=== PATIENT | male | born 1965 | race Caucasian/White ===

== ENCOUNTER → 2019-06-06 | Outpatient (CLI) | payer OTHER ==
--- NOTE | 2019-06-06 17:44 | CONS ---
CONSULTATION REASON FOR CONSULTATION: Sleep apnea. This is a 53-year-old male patient referred to me due to symptoms of loud snoring, witnessed apneas, and some increased fatigue and sleepiness. 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 He travels a lot. However, he does not fall asleep while driving. He is coming in for a sleep apnea evaluation. He goes to bed between 8 and 9 p.m. and wakes up at 3:45 a.m. in the morning. On weekends, he wakes up between 7 and 8 a.m. His current [place] score is 8. No recent weight gain or weight loss. No reported substance abuse. No head trauma. No meningitis. No difficulties with memory or concentration. No anxiety or depression. Occasional heartburn has been reported, for which he is on treatment. PAST MEDICAL HISTORY: Hypertension, hyperlipidemia, obesity. PAST SURGICAL HISTORY: Past surgical history includes left thumb surgery, left ankle surgery, right knee surgery. DRUG ALLERGIES: NOT KNOWN. He is allergic to cats. OUTPATIENT MEDICATION LIST: Outpatient medication list includes Protonix 40 mg p.o. daily, Protonix and Lipitor. He takes eawi-sto-puatmso allergy medication. SOCIAL HISTORY: Ex-smoker. Quit smoking in 1998. He drinks around 6 to 8 alcoholic beverages on a weekly basis. No history of substance abuse. REVIEW OF SYSTEMS: Fourteen-point review of systems was done. Positive findings were all mentioned above in the history of present illness. No restlessness in the lower extremities. No choking or gasping sensation. No nocturia. No grinding of the teeth. No palpitation or panic attacks or depression or anxiety. PHYSICAL EXAMINATION: VITAL SIGNS: BP is 150/90, pulse 74, respirations 16, temperature 98.4, saturation 99% on room air. BMI 34.2. Junedale score is 8. Neck size is 17 inches. Weight is 219. Height is 5 feet 7 inches. GENERAL APPEARANCE: Calm, comfortable. HEAD: Atraumatic, normocephalic. NECK: Supple. No JVD. No goiter or neck masses. Mallampati class IV. LUNGS: Clear to auscultation. HEART: Heart sounds are regular rate and rhythm. Normal S1, S2. No S3, S4. No murmurs. ABDOMEN: Soft, nontender. No organomegaly. EXTREMITIES: No edema. No cyanosis or clubbing. NEUROLOGIC: Awake and alert. No focal neurological deficit. PSYCHIATRIC: Negative for anxiety or depression. IMPRESSION: 1. Obstructive sleep apnea clinically suspected; under investigation. 2. Limited sleepiness with an Junedale score of 8. 3. Obesity. BMI of 34. 4. Hypertension. 5. Hyperlipidemia. PLAN: 1. Encourage weight loss. 2. Sleep hygiene measures will be implemented. 3. The patient will be undergoing a polysomnogram, and further decisions will be made as to whether treatment is needed, depending on the results of the sleep study. MMODL / IJN: [id number] /
== END | disposition home or self-care (01) ==
LOC: SLEEP 13:23
PROVIDERS: ATTEND Internal Medicine Critical Care Medicine
DX: R06.83 Snoring (principal); E66.9 Obesity, unspecified; Z68.34 Body mass index [BMI] 34.0-34.9, adult; I10 Essential (primary) hypertension; E78.5 Hyperlipidemia, unspecified; Z87.891 Personal history of nicotine dependence; Z79.899 Other long term (current) drug therapy; J30.81 Allergic rhinitis due to animal (cat) (dog) hair and dander
CPT/HCPCS: 99201

== ENCOUNTER → 2021-11-04 | Outpatient (CLI) | payer OTHER ==
--- NOTE | 2021-11-04 15:19 | P.PN ---
Subjective Progress Note Date: 11/04/21 This is a 56-year-old who is coming in for evaluation treatment of obstructive sleep apnea. The patient was seen approximately 3 years ago here in the sleep center at a time the patient was symptomatic and has chronic tiredness and fatigue and sleepiness and an [facility] was having witnessed apneas highly suggestive obstructive sleep apnea. I performed a home sleep study on this patient that was completed on 10/04/2019 and the patient was diagnosed having severe CHAYO with an AHI of 31. He disease was slightly worse in the supine body position. He also demonstrated mild nocturnal oxygen desaturation and he was having chronic hypersomnia. He had other comorbid conditions including hyp ertension and hyperlipidemia. Based on all this, I ordered a CPAP machine for this patient. The machine was not covered by his insurance, [email or web address]. As such, the patient was left without any treatment and he has become quite symptomatic and for that is coming in for further advice. His weight is up a few pounds and is currently weighing around 222 pounds. His [place] score is at about 14. He has no new onset comorbidities. No congestion heart failure. No cardiac arrhythmias. No morning headaches. No nighttime choking or gasping for air. He is tiredness and sleepiness is affecting his overall functionality. Objective - Exam BP is 145/89, pulse is at 70, respirations at 16, temperature is 97.3, height is 5 feet and 7 inches, body mass index is 34.5, oxygen saturations 97% The patient appeared well nourished and normally developed. Vital signs as documented. Head exam is unremarkable. No scleral icterus or corneal arcus noted. Neck is without jugular venous distension, thyromegaly, or carotid bruits. Carotid upstrokes are brisk bilaterally. Lungs are clear to auscultation and percussion. Cardiac exam reveals the PMI to be normally sized and situated. Rhythm is regular. First and second heart sounds normal. No murmurs, rubs or gallops. Abdominal exam reveals normal bowel sounds, no masses, no organomegaly and no aortic enlargement. Extremities are nonedematous and both femoral and pedal pulses are normal.Examination of the skin revealed no evidence of significant rashes, suspicious appearing nevi or other concerning l esions.Neurologically, the patient is awake and alert and the patient does not have any focal neurological deficit. Cranial nerves are essentially intact. Assessment and Plan Plan: Symptomatically obstructive sleep apnea. The patient has severe degenerative baseline with an AHI of 31 slightly worse in supine with a position confirmed on a sleep study that was done on 10/09/2019. The patient is in need for treatment. He is hoping that his [facility] insurance will cover the cost of the machine. Chronic hypersomnia, related to symptomatic obstructive sleep apnea and [place] score is at 14 Hypertension Hyperlipidemia Obesity with a BMI of 34.5 Plan Encourage weight loss. Maintaining her sleep hygiene measures Maintain regular sleep schedule Proceed with obtaining a clearance from the insurance to cover this patient's CPAP machine. I do not see the need for at least study. The patient is going to check his coverage with the [facility] and let me know if this is covered and accordingly we'll proceed with ordering the appropriate APAP machine for this patient. We'll continue to follow.
== END ==
LOC: SLEEP 13:44
PROVIDERS: ATTEND Internal Medicine Critical Care Medicine
DX: G47.33 Obstructive sleep apnea (adult) (pediatric) (principal); I10 Essential (primary) hypertension; E78.5 Hyperlipidemia, unspecified; E66.9 Obesity, unspecified; Z68.34 Body mass index [BMI] 34.0-34.9, adult

== ENCOUNTER → 2022-09-22 | Outpatient (CLI) | payer OTHER ==
--- NOTE | 2022-09-22 16:00 | P.PN ---
Progress Note - Text Progress Note Date: 09/22/22 57-year-old male patient, diagnosed having severe symptomatic obstructive sleep apnea with an AHI of 43. The patient is coming in for a compliancy check as the patient was started on treatment and the patient's current on a CPAP pressure of 11 cm of water. The patient is also using airfit p10 nasal pillows. The patient is very much excited about his ongoing treatment. The patient is feeling much improved and he doesn't have any significant hypersomnia and sleepiness. While at work, the patient reports marked improvement when he is able to concentrate well and he doesn't fall asleep during day-to-day activities. He also reports marked improvement in his sleep quality and he is committed to long-term CPAP therapy at the treatment is working for him. Note that the patient had severe disease. Based on his compliance data from the machine, the patient has been averaging around 7.9 hours of CPAP use per night with a leak of 4 L/m and the patient's AHI is down to 2. His weight is stable for now. He has no specific complaints. His committed. BP is 136/82, pulse is 56, respirations 18, temperature is 98.0, weight is 222 and oxygen saturation 97% on room air Patient's [place] score is down to 8 The patient appeared well nourished and normally developed. Vital signs as doc umented. Head exam is unremarkable. No scleral icterus or corneal arcus noted. Neck is without jugular venous distension, thyromegaly, or carotid bruits. Carotid upstrokes are brisk bilaterally. Lungs are clear to auscultation and percussion. Cardiac exam reveals the PMI to be normally sized and situated. Rhythm is regular. First and second heart sounds normal. No murmurs, rubs or gallops. Abdominal exam reveals normal bowel sounds, no masses, no organomegaly and no aortic enlargement. Extremities are nonedematous and both femoral and pedal pulses are normal.Examination of the skin revealed no evidence of significant rashes, suspicious appearing nevi or other concerning lesions.Neurologically, the patient is awake and alert and the patient does not have any focal neurological deficit. Cranial nerves are essentially intact. Assessment Severe symptomatic CHAYO with an AHI of 43, undergoing successful CPAP therapy at a pressure of 11 cm of water. Treatment is successful for now. Chronic hypersomnia, improved with CPAP therapy and the patient reports marked improvement in sleep quality and daytime alertness Hypertension Hyperlipidemia Obesity Plan Treatment is successful. Continue using the same CPAP pressures. Keep same mask interface. Encourage weight loss. The patient is committed to long-term CPAP therapy. He will see him back in a year's time in follow-up. He meet insurance standards for compliancy.
== END ==
LOC: 3 N SLEEP 15:16
PROVIDERS: ATTEND Internal Medicine Critical Care Medicine
DX: G47.33 Obstructive sleep apnea (adult) (pediatric) (principal); Z99.89 Dependence on other enabling machines and devices; I10 Essential (primary) hypertension; E66.9 Obesity, unspecified; E78.5 Hyperlipidemia, unspecified
CPT/HCPCS: 99212

== ENCOUNTER 2023-07-03 17:17 | Emergency (ER) | payer OTHER ==
[2023-07-03 17:49] VITALS: TEMP 98.7
--- NOTE | 2023-07-03 17:55 | ED ---
Abdominal Pain HPI - General Source: patient Mode of arrival: ambulatory Limitations: no limitations <Vincent Coto - Last Filed: 07/03/23 17:56> - General Source: patient, RN notes reviewed, old records reviewed <Dillan Gallagher - Last Filed: 07/03/23 21:06> - General Chief Complaint: Abdominal Pain Stated Complaint: LLQ pain/cramps back pain Time Seen by Provider: 07/03/23 17:50 - History of Present Illness Initial Comments: 57-year-old male presenting to the ED with a chief complaint of abdominal pain. Patient states since Wednesday has had intermittent pain which is cramping in nature in his left lower abdomen. Patient states he has some associated nonbloody diarrhea with this as well. Also some pain on the left lower back. No urinary symptoms. No fever or chills. No chest pain or shortness of breath. (Vincent Coto) Patient originally evaluated as a quick note. I evaluated patient after his placed in room. Presents with left lower quadrant abdominal pain with diarrhea for 5 days. No significant past medical history. Presents for further evaluation. (Dillan Gallagher) - Related Data Previous Rx's Medication Instructions Recorded Amoxic-Pot Clav 875-125Mg 1 tab PO BID 10 Days #20 tab 07/03/23 [Augmentin 875-125] Dicyclomine [Bentyl] 10 mg PO TID PRN 7 Days #21 capsule 07/03/23 Allergies Allergy/AdvReac Type Severity Reaction Status Date / Time No Known Allergies Allergy Verified 07/03/23 17:32 Review of Systems ROS Other: All systems not noted in ROS Statement are negative. <Vincent Coto - Last Filed: 07/03/23 17:56> ROS Other: All systems not noted in ROS Statement are negative. <Dillan Gallagher - Last Filed: 07/03/23 21:06> ROS Statement: Those systems with pertinent positive or pertinent negative responses have been documented in the HPI. Review of Systems: CONST: Denies fever EYES: Denies blurry vision ENT: Denies nasal congestion C/V: Denies Chest pain RESP: Denies shortness of breath GI: Endorses abdominal pain : Denies dysuria SKIN: Denies rash. MSK: Denies joint pain. NEURO: Denies headache (Dillan Gallagher) Past Medical History Past Medical History: No Reported History History of Any Multi-Drug Resistant Organisms: None Reported Past Surgical History: Orthopedic Surgery Smoking Status: Former smoker Past Alcohol Use History: None Reported Past Drug Use History: None Reported <Vincent Coto - Last Filed: 07/03/23 17:56> General Exam Limitations: no limitations <Vincent Coto - Last Filed: 07/03/23 17:56> <Dillan Gallagher - Last Filed: 07/03/23 21:06> - General Exam Comments Initial Comments: Visual Physical Exam Vital signs reviewed General: Well-appearing, nontoxic, no acute distress. Head: Normocephalic, atraumatic Eyes: PERRLA, EOMI ENT: Airway patent Chest: Nonlabored breathing Skin: No visual rash, normal skin tone Neuro: Alert and oriented 3 Musculoskeletal: No gross abnormalities (Vincent Coto) General: Appears in no acute distress. HEAD: Normal with no signs of head trauma. EYES: PERRLA, EOMI, conjunctiva normal, no discharge. ENT: Hearing grossly intact, normal oropharynx. RESPIRATORY: Clear breath sounds bilaterally. No wheezes, rales, or rhonchi. C/V: Regular rate and rhythm. S1 and S2 auscultated, no edema, peripheral pulses 2+ and intact throughout ABD: Abdomen soft, nondistended. Tender palpation left lower quadrant. No guarding. No rebound tenderness. No peritoneal signs. EXT: Normal range of motion, no obvious deformity SKIN: No rashes or lesions observed on exposed skin. NEURO: Alert and oriented x 4. (Dillan Gallagher) Course Vital Signs 07/03/23 07/03/23 17:28 20:40 Temperature 98.7 F Pulse Rate 73 74 Respiratory 20 16 Rate Blood Pressure 151/93 142/82 O2 Sat by Pulse 96 96 Oximetry Medical Decision Making <Vincent Coto - Last Filed: 07/03/23 17:56> - Lab Data Result diagrams: 07/03/23 18:01 07/03/23 18:01 <Dillan Gallagher - Last Filed: 07/03/23 21:06> - Medical Decision Making Quicknote portion performed. Signed Vincent Coto PA-C (Vincent Coto) Was pt. sent in by a medical professional or institution (, RK, ASSISTANT PROFESSOR SURGICAL TECHNOLOGY, urgent care, hospital, or care home...) When possible be specific @ -No Did you speak to anyone other than the patient for history (EMS, parent, family, police, friend...)? What history was obtained from this source @ -No Did you review nursing and triage notes (agree or disagree)? Why? @ -I reviewed and agree with nursing and triage notes Were old charts reviewed (outside hosp., previous admission, EMS record, old EKG, old radiological studies, urgent care reports/EKG's, care home records)? Report findings @ -Old charts reviewed Differential Diagnosis (chest pain, altered mental status, abdominal pain women, abdominal pain men, vaginal bleeding, weakness, fever, dyspnea, syncope, headache, dizziness, GI bleed, back pain, seizure, CVA, palpatations, mental health, musculoskeletal)? @ -Differential Abdominal Pain Men: Appendicitis, cholecystitis, diverticulosis, ischemic bowel, pancreatitis, hepatitis, UTI, gastroenteritis, AAA, incarcerated hernia, bowel obstruction, constipation, inflammatory bowel, hepatitis, peptic ulcer disease, splenic infarction, perforated viscus, testicular torsion, this is not meant to be an all-inclusive list EKG interpreted by me (3pts min.). @ -None done X-rays interpreted by me (1pt min.). @ -None done CT interpreted by me (1pt min.). @ -CT abdomen pelvis reveals uncomplicated diverticulitis. U/S interpreted by me (1pt. min.). @ -None done What testing was considered but not performed or refused? (CT, X-rays, U/S, labs)? Why? @ -None What meds were considered but not given or refused? Why? @ -None Did you discuss the management of the patient with other professionals (professionals i.e. RK Coats, ASSISTANT PROFESSOR SURGICAL TECHNOLOGY, lab, RT, psych nurse, health and social care teacher, irrigation system operator, teacher, customer service security officer, clinical case manager)? Give summary @ -No Was smoking cessation discussed for >3mins.? @ -No Was critical care preformed (if so, how long)? @ -No Were there social determinants of health that impacted care today? How? (Homelessness, low income, unemployed, alcoholism, drug addiction, transpo rtation, low edu. Level, literacy, decrease access to med. care, [facility], rehab)? @ -No Was there de-escalation of care discussed even if they declined (Discuss DNR or withdrawal of care, Hospice)? DNR status @ -No What co-morbidities impacted this encounter? (DM, HTN, Smoking, COPD, CAD, Cancer, CVA, ARF, Chemo, Hep., AIDS, mental health diagnosis, sleep apnea, morbid obesity)? @ -None Was patient admitted / discharged? Hospital course, mention meds given and route, prescriptions, significant lab abnormalities, going to OR and other pertinent info. @ -Based on patient's presentation and physical exam, presents emergency department with left lower quadrant abdominal pain. Vital signs within acceptable limits. Started as a quick note. We will obtain abdominal labs, CT imaging. Patient declines analgesia medications. he will be given a 1 L fluid bolus. Labs are remarkable for mild leukocytosis of 12. Remainder the labs unremarkable. Imaging reveals uncomplicated diverticulitis. I updated the patient. He will be discharged home at this time on antibiotics. He was in agreement this plan. I will provide the patient with a prescription for Augmentin, Bentyl. I instructed the patient to follow up with their PCP in the next 1-3 days.. I explained that the patient should return to the emergency department if they experience any worsening symptoms. Strict return precautions were discussed with the patient. The patient expressed understanding of these instructions. I answered all questions that the patient had. The patient was discharged home in good condition with their prescriptions and follow up information. Undiagnosed new problem with uncertain prognosis? @ -No Drug Therapy requiring intensive monitoring for toxicity (Heparin, Nitro, Insulin, Cardizem)? @ -No Were any procedures done? @ -No Diagnosis/symptom? @ -Diverticulitis Acute, or Chronic, or Acute on Chronic? @ -Acute Uncomplicated (without systemic symptoms) or Complicated (systemic symptoms)? @ -Uncomplicated Side effects of treatment? @ -No Exacerbation, Progression, or Severe Exacerbation? @ -No Poses a threat to life or bodily function? How? (Chest pain, USA, PR, pneumonia, PE, COPD, DKA, ARF, appy, cholecystitis, CVA, Diverticulitis, Homicidal, Suicidal, threat to staff... and all critical care pts) @ -Unlikely (Dillan Gallagher) - Lab Data Lab Results 07/03/23 07/03/23 07/03/23 Range/Units 18:01 18:01 18:01 WBC 12.0 H (3.8-10.6) k/uL RBC 4.16 L (4.30-5.90) m/uL Hgb 13.9 (13.0-17.5) gm/dL Hct 41.3 (39.0-53.0) % MCV 99.2 (80.0-100.0) fL MCH 33.4 (25.0-35.0) pg MCHC 33.7 (31.0-37.0) g/dL RDW 12.3 (11.5-15.5) % Plt Count 276 (150-450) k/uL MPV 8.2 Neutrophils % 68 % Lymphocytes % 20 % Monocytes % 6 % Eosinophils % 2 % Basophils % 1 % Neutrophils # 8.2 H (1.3-7.7) k/uL Lymphocytes # 2.5 (1.0-4.8) k/uL Monocytes # 0.7 (0-1.0) k/uL Eosinophils # 0.3 (0-0.7) k/uL Basophils # 0.1 (0-0.2) k/uL Sodium 139 (137-145) mmol/L Potassium 4.3 (3.5-5.1) mmol/L Chloride 100 (98-107) mmol/L Carbon Dioxide 26 (22-30) mmol/L Anion Gap 13 mmol/L BUN 16 (9-20) mg/dL Creatinine 0.95 (0.66-1.25) mg/dL Est GFR (CKD-EPI)AfAm >90 (>60 ml/min/1.73 sqM) Est GFR (CKD-EPI)NonAf 88 (>60 ml/min/1.73 sqM) Glucose 100 H (74-99) mg/dL Calcium 10.0 (8.4-10.2) mg/dL Total Bilirubin 0.6 (0.2-1.3) mg/dL AST 32 (17-59) U/L ALT 32 (4-49) U/L Alkaline Phosphatase 88 (38-126) U/L Total Protein 8.2 (6.3-8.2) g/dL Albumin 4.9 (3.5-5.0) g/dL Amylase 60 (30-110) U/L Lipase 204 (23-300) U/L Urine Color Colorless Urine Appearance Clear (Clear) Urine pH 6.5 (5.0-8.0) Ur Specific [place] 1.007 (1.001-1.035) Urine Protein Negative (Negative) Urine Glucose (UA) Negative (Negative) Urine Ketones Negative (Negative) Urine Blood Negative (Negative) Urine Nitrite Negative (Negative) Urine Bilirubin Negative (Negative) Urine Urobilinogen <2.0 (<2.0) mg/dL Ur Leukocyte Esterase Negative (Negative) Influenza Type A (PCR) (Not Detectd) Influenza Type B (PCR) (Not Detectd) RSV (PCR) (Not Detectd) SARS-CoV-2 (PCR) (Not Detectd) 07/03/23 Range/Units 18:01 WBC (3.8-10.6) k/uL RBC (4.30-5.90) m/uL Hgb (13.0-17.5) gm/dL Hct (39.0-53.0) % MCV (80.0-100.0) fL MCH (25.0-35.0) pg MCHC (31.0-37.0) g/dL RDW (11.5-15.5) % Plt Count (150-450) k/uL MPV Neutrophils % % Lymphocytes % % Monocytes % % Eosinophils % % Basophils % % Neutrophils # (1.3-7.7) k/uL Lymphocytes # (1.0-4.8) k/uL Monocytes # (0-1.0) k/uL Eosinophils # (0-0.7) k/uL Basophils # (0-0.2) k/uL Sodium (137-145) mmol/L Potassium (3.5-5.1) mmol/L Chloride (98-107) mmol/L Carbon Dioxide (22-30) mmol/L Anion Gap mmol/L BUN (9-20) mg/dL Creatinine (0.66-1.25) mg/dL Est GFR (CKD-EPI)AfAm (>60 ml/min/1.73 sqM) Est GFR (CKD-EPI)NonAf (>60 ml/min/1.73 sqM) Glucose (74-99) mg/dL Calcium (8.4-10.2) mg/dL Total Bilirubin (0.2-1.3) mg/dL AST (17-59) U/L ALT (4-49) U/L Alkaline Phosphatase (38-126) U/L Total Protein (6.3-8.2) g/dL Albumin (3.5-5.0) g/dL Amylase (30-110) U/L Lipase (23-300) U/L Urine Color Urine Appearance (Clear) Urine pH (5.0-8.0) Ur Specific [place] (1.001-1.035) Urine Protein (Negative) Urine Glucose (UA) (Negative) Urine Ketones (Negative) Urine Blood (Negative) Urine Nitrite (Negative) Urine Bilirubin (Negative) Urine Urobilinogen (<2.0) mg/dL Ur Leukocyte Esterase (Negative) Influenza Type A (PCR) Not Detected (Not Detectd) Influenza Type B (PCR) Not Detected (Not Detectd) RSV (PCR) Not Detected (Not Detectd) SARS-CoV-2 (PCR) Not Detected (Not Detectd) Disposition <Vincent Coto - Last Filed: 07/03/23 17:56> Is patient prescribed a controlled substance at d/c from ED?: No Time of Disposition: 20:27 <Dillan Gallagher - Last Filed: 07/03/23 21:06> Clinical Impression: Diverticulitis Disposition: HOME SELF-CARE Condition: Good Instructions (If sedation given, give patient instructions): Diverticulitis (ED) Prescriptions: Amoxic-Pot Clav 875-125Mg [Augmentin 875-125] 1 tab PO BID 10 Days #20 tab Dicyclomine [Bentyl] 10 mg PO TID PRN 7 Days #21 capsule PRN Reason: Pain Referrals: Seun Hernandez DO [Primary Care Provider] - 1-2 days
[2023-07-03 18:34] LABS: Basophils # (A) 0.1 k/uL (0-0.2); Basophils % (A) 1 %; Eosinophils # (A) 0.3 k/uL (0-0.7); Eosinophils % (A) 2 %; HCT 41.3 % (39.0-53.0); HGB 13.9 gm/dL (13.0-17.5); Lymphocytes # (A) 2.5 k/uL (1.0-4.8); Lymphocytes % (A) 20 %; MCH 33.4 pg (25.0-35.0); MCHC 33.7 g/dL (31.0-37.0); MCV 99.2 fL (80.0-100.0); Mean Platelet Volume 8.2; Monocytes # (A) 0.7 k/uL (0-1.0); Monocytes % (A) 6 %; Neutrophils # (A) 8.2 k/uL (1.3-7.7); Neutrophils % (A) 68 %; Platelet Count 276 k/uL (150-450); RBC 4.16 m/uL (4.30-5.90); RDW 12.3 % (11.5-15.5)
[2023-07-03 18:45] LABS: ALT 32 U/L (4-49); AST 32 U/L (17-59); African American GFR (CKD) >90 (>60 ml/min/1.73 sqM); Albumin 4.9 g/dL (3.5-5.0); Alkaline Phosphatase 88 U/L (38-126); Amylase 60 U/L (30-110); Anion Gap 13 mmol/L; Blood Urea Nitrogen 16 mg/dL (9-20); Carbon Dioxide 26 mmol/L (22-30); Chloride 100 mmol/L (98-107); Glucose 100 mg/dL (74-99); Lipase 204 U/L (23-300); Non-African American GFR(CKD) 88 (>60 ml/min/1.73 sqM); Potassium 4.3 mmol/L (3.5-5.1); Sodium 139 mmol/L (137-145); Total Bilirubin 0.6 mg/dL (0.2-1.3); Total Protein 8.2 g/dL (6.3-8.2)
[2023-07-03] MEDS: SODIUM CHLORIDE 0.9% 1,000 ML IV STA (18:54)
[2023-07-03 18:59] LABS: Appearance,Urine Clear (Clear); Bilirubin,Urine Negative (Negative); Blood,Urine Negative (Negative); Color,Urine Colorless; Glucose,Urine (UA) Negative (Negative); Ketones,Urine Negative (Negative); Leukocyte Esterase,Urine Negative (Negative); Nitrite,Urine Negative (Negative); PH, Urine 6.5 (5.0-8.0); Protein,Urine Negative (Negative); Specific Gravity,Urine 1.007 (1.001-1.035); Urobilinogen,Urine <2.0 mg/dL (<2.0)
--- NOTE | 2023-07-03 19:48 | CT ---
EXAMINATION TYPE: CT abdomen pelvis wo con CT DLP: 1017.4 mGycm, Automated exposure control for dose reduction was used. DATE OF EXAM: 07/03/2023 6:46 PM COMPARISON: None CLINICAL INDICATION:Male, 57 years old with history of LLQ abdominal pain, diarrhea, also left flank pain; LLQ abdominal/flank pain. TECHNIQUE: Axial CT abdomen pelvis wo con;Sagittal and coronal reformats were created on a separate workstation. Contrast used: mL of , (none if empty) Oral contrast used: without Oral Contrast (none if empty) FINDINGS: LOWER CHEST: Unremarkable ABDOMEN LIVER: Calcified granuloma in the caudate lobe. GALLBLADDER AND BILE DUCTS: Unremarkable. PANCREAS: Unremarkable. SPLEEN: Unremarkable. ADRENAL GLANDS: Unremarkable. KIDNEYS AND URETERS: No evidence of hydronephrosis or renal calculus. The ureters are unremarkable. PELVIS BLADDER: Unremarkable REPRODUCTIVE: Unremarkable. ABDOMEN & PELVIS STOMACH AND BOWEL: There are colonic diverticula present, one of which has adjacent fat stranding riddhi nges. No organizing fluid collection or evidence of pneumoperitoneum. No evidence of bowel obstructio n. PERITONEUM/RETROPERITONEUM: No evidence of pneumoperitoneum or free fluid. VASCULATURE: No evidence of aortic aneurysm. MUSCULOSKELETAL: No acute osseous abnormalities LYMPH NODES: No gross evidence for lymphadenopathy. SOFT TISSUE/ABDOMINAL WALL: Fat-containing umbilical hernias bilaterally. IMPRESSION: Acute uncomplicated diverticulitis of the descending colon.
[2023-07-03] MEDS: AMOXIC-POT CLAV 875-125MG 1 EACH TAB PO STA (20:34)
[2023-07-03] MEDS: DICYCLOMINE 10 MG CAP PO STA (20:34)
[2023-07-03 21:04] VITALS: BP 142/82; PULSE 74; RESP 16
== END 2023-07-03 20:40 | disposition home or self-care (01) ==
LOC: EC 17:17
DX: K57.32 Diverticulitis of large intestine without perforation or abscess without bleeding (principal); Z87.891 Personal history of nicotine dependence
CPT/HCPCS: 36415; 74176; 80053; 81003; 82150; 83690; 85025; 87636; 93005; 96360; 99284